=== PATIENT | male | born 1990 | race African-American/Black ===

== ENCOUNTER 2023-03-12 14:22 | Inpatient (IN) ==
[2023-03-12 14:52] LABS: INR 1.19 (0.88-1.18)
[2023-03-12 14:54] LABS: Hematocrit 36.3 % (38-53); Hemoglobin 11.7 g/dL (13.2-16.3); Mean Corpuscular Hemoglobin 22.7 pg (27-33); Mean Corpuscular Hgb Conc 32.1 g/dL (31-36); Mean Corpuscular Volume 70.8 fL (80-97); Mean Platelet Volume 6.9 fL (7.5-11.2); Platelet Count 426 10^3/uL (150-450); Red Blood Count 5.13 10^6/uL (4.06-5.63); Red Cell Distribution Width 19.6 % (12-17); White Blood Count 9.4 10^3/uL (3.6-10.2)
[2023-03-12] MEDS ORDERED: Iodixanol (CONTRAST) 320 MG/ML 100 ML SDV IV ONE (15:43)
[2023-03-12 15:52] LABS: Albumin 3.6 g/dL (3.2-5.2); Albumin/Globulin Ratio 1.1 (1-3); Calcium 8.9 mg/dL (8.6-10.3); Creatinine, Serum 1.57 mg/dL (0.67-1.17); Globulin 3.4 g/dL (2-4); Potassium 3.8 mmol/L (3.5-5.0); Total Bilirubin 0.7 mg/dL (0.2-1.0); eGFR CKD-EPI 59.3 (>60)
[2023-03-12 15:55] LABS: ABS Basophils 0.1 10^3/uL (0.0-0.1); ABS Eosinophils 0.3 10^3/uL (0.0-0.5); ABS Lymphocytes 2.1 10^3/uL (1.0-4.8); ABS Monocytes 0.7 10^3/uL (0.0-1.1); ABS Neutrophils 6.2 10^3/uL (1.5-7.6); ABS Nucleated RBC 0.01 10^3/ul; Eosinophil % 3.3 %; Lymphocyte % 22.6 %; Microcytosis 2+; Nucleated Red Blood Cells % 0.1 /100 WBC (0.0-0.4)
[2023-03-12 15:56] LABS: Anisocytosis 1+; Hypochromasia 2+
[2023-03-12 16:18] LABS: High Sensitivity Troponin 1 Hr 82 pg/mL (<20)
[2023-03-12 16:27] LABS: C Reactive Protein 17.74 mg/L (<8.01)
[2023-03-12] MEDS ORDERED: Cefepime 2 GM in Dextrose 2 GM/50 ML BAG IV ONE (16:37)
[2023-03-12] MEDS ORDERED: Lactated Ringers 1000 ml BAG 1,000 ML IV ONE (17:24)
[2023-03-12] MEDS ORDERED: NS 0.9% 1000 ml BAG 1,000 ML IV SCH (18:15)
[2023-03-12] MEDS ORDERED: Labetalol IV 5 MG/ML 20 ml VIAL IV PUSH PRN ×2 (18:55→20:07)
[2023-03-12] MEDS ORDERED: Enoxaparin 40 MG/0.4 ML SYR SUBCUT SCH (19:00)
[2023-03-12] MEDS: Azithromycin 500 mg/250 ml NS 500 MG/250 ML BAG IVPB SCH (19:30)
[2023-03-12 19:58] LABS: Urine Appearance Clear; Urine Bilirubin Negative (Negative); Urine Blood Negative (Negative); Urine Color Yellow; Urine Glucose Negative (Negative); Urine Ketones Negative (Negative); Urine Nitrite Negative (Negative); Urine Protein 2+(100 mg/dL) (Negative); Urine Urobilinogen Negative (Negative)
[2023-03-12 20:10] LABS: Urine Bacteria Absent (Absent); Urine Red Blood Cell Trace(0-2/hpf) (Absent); Urine Squamous Epithelial Cell Present (Absent); Urine White Blood Cell Trace(0-5/hpf) (Absent)
[2023-03-12 20:12] LABS: Urine Benzodiazepine Screen None Detected (None Detect); Urine Cannabinoids Screen None Detected (None Detect); Urine Opiates Screen None Detected (None Detect)
[2023-03-12 20:51] LABS: Urine Specific Gravity > 1.060 (1.002-1.030)
[2023-03-12] MEDS ORDERED: Furosemide 40 mg/4 ml IV VIAL IV SLOW PU ONE (21:58)
[2023-03-12 22:02] LABS: PCO2 Arterial 32 mmHg (35-45); PO2 Arterial 68 mmHg (80-100)
[2023-03-12 22:10] LABS: % Iron Saturation 4 % (15-55); .Transferrin 320 mg/dL (203-362); Iron < 20 ug/dL (50-212); Total Iron Binding Capacity 448 mcg/dL (250-450); Unsaturated Iron Binding 428 ug/dL
[2023-03-12 22:30] LABS: Ferritin 14.7 ng/mL (24-336)
[2023-03-13] MEDS: Metoprolol Tartrate 5 mg VIAL 5 ml VIAL (1 mg/ml) IV PRN ×2 (00:14→06:06)
[2023-03-13] MEDS ORDERED: Acetaminoph/Cod 120/12 mg LIQ 5 ML UDC PO ONE (00:31)
[2023-03-13 05:38] LABS: ABS Basophils 0.1 10^3/uL (0.0-0.1); ABS Lymphocytes 1.8 10^3/uL (1.0-4.8); ABS Monocytes 0.6 10^3/uL (0.0-1.1); ABS Nucleated RBC 0.01 10^3/ul; Eosinophil % 0.1 %; Hematocrit 39.1 % (38-53); Hemoglobin 12.3 g/dL (13.2-16.3); Lymphocyte % 12.2 %; Mean Corpuscular Hemoglobin 22.5 pg (27-33); Mean Corpuscular Hgb Conc 31.5 g/dL (31-36); Mean Corpuscular Volume 71.3 fL (80-97); Mean Platelet Volume 7.1 fL (7.5-11.2); Nucleated Red Blood Cells % 0.1 /100 WBC (0.0-0.4); Platelet Count 474 10^3/uL (150-450); Red Blood Count 5.48 10^6/uL (4.06-5.63); Red Cell Distribution Width 19.4 % (12-17); White Blood Count 14.5 10^3/uL (3.6-10.2)
[2023-03-13 05:52] LABS: Albumin 3.7 g/dL (3.2-5.2); Albumin/Globulin Ratio 1.1 (1-3); Calcium 8.8 mg/dL (8.6-10.3); Creatinine, Serum 1.61 mg/dL (0.67-1.17); Globulin 3.3 g/dL (2-4); Magnesium 1.8 mg/dL (1.9-2.7); Potassium 4.3 mmol/L (3.5-5.0); Total Bilirubin 0.7 mg/dL (0.2-1.0); eGFR CKD-EPI 57.6 (>60)
[2023-03-13] MEDS ORDERED: Labetalol IV 5 MG/ML 20 ml VIAL IV PUSH PRN (07:50)
[2023-03-13] MEDS: cefTRIAXone 1 gm/50 mL D5W 1 GM/50 ML BAG IV SCH (08:40)
[2023-03-13] MEDS ORDERED: Magnesium Sulfate 2 gm BAG 2 GM/50 ML BAG IVPB ONE (13:44)
[2023-03-13] MEDS ORDERED: Iron Dextran 25 MG in NS 0.9% 50 ML 50 ML IVPB ONE (13:50)
[2023-03-13] MEDS ORDERED: IRON DEXTRAN IVPB ONE (15:00)
[2023-03-13] MEDS ORDERED: NS 0.9% IVPB ONE (15:00)
[2023-03-13 16:51] LABS: HDL Cholesterol 47.4 mg/dL
[2023-03-13] MEDS ORDERED: Albuterol/Ipratropium NEB.SOL (2.5/0.5 MG) 3 ML NEB.SOLN INH PRN (18:11)
[2023-03-13] MEDS: Azithromycin 500 mg/250 ml NS 500 MG/250 ML BAG IVPB SCH (19:58)
[2023-03-13] MEDS: Enoxaparin 40 MG/0.4 ML SYR SUBCUT SCH (19:58)
[2023-03-14 04:38] LABS: Hematocrit 34.6 % (38-53); Mean Corpuscular Hemoglobin 22.7 pg (27-33); Mean Corpuscular Hgb Conc 31.8 g/dL (31-36); Mean Corpuscular Volume 71.4 fL (80-97); Mean Platelet Volume 7.1 fL (7.5-11.2); Platelet Count 429 10^3/uL (150-450); Red Blood Count 4.85 10^6/uL (4.06-5.63); Red Cell Distribution Width 19.3 % (12-17); White Blood Count 14.4 10^3/uL (3.6-10.2)
[2023-03-14 05:22] LABS: Calcium 8.4 mg/dL (8.6-10.3); Creatinine, Serum 1.42 mg/dL (0.67-1.17); Magnesium 2.4 mg/dL (1.9-2.7); eGFR CKD-EPI 66.9 (>60)
[2023-03-14] MEDS: cefTRIAXone 1 gm/50 mL D5W 1 GM/50 ML BAG IV SCH (08:05)
[2023-03-14] MEDS ORDERED: Empagliflozin 25 MG TAB PO SCH (14:00)
[2023-03-14] MEDS: Enoxaparin 40 MG/0.4 ML SYR SUBCUT SCH (21:08)
[2023-03-14] MEDS: Azithromycin 500 mg/250 ml NS 500 MG/250 ML BAG IVPB SCH (21:08)
[2023-03-15 06:06] LABS: Hematocrit 36.7 % (38-53); Hemoglobin 11.7 g/dL (13.2-16.3); Mean Corpuscular Hemoglobin 22.8 pg (27-33); Mean Corpuscular Hgb Conc 31.9 g/dL (31-36); Mean Corpuscular Volume 71.5 fL (80-97); Mean Platelet Volume 7.4 fL (7.5-11.2); Platelet Count 466 10^3/uL (150-450); Red Blood Count 5.13 10^6/uL (4.06-5.63); Red Cell Distribution Width 19.8 % (12-17); White Blood Count 14.4 10^3/uL (3.6-10.2)
[2023-03-15 06:31] LABS: Calcium 8.8 mg/dL (8.6-10.3); Creatinine, Serum 1.42 mg/dL (0.67-1.17); Magnesium 2.1 mg/dL (1.9-2.7); Potassium 4.4 mmol/L (3.5-5.0); eGFR CKD-EPI 66.9 (>60)
[2023-03-15] MEDS: cefTRIAXone 1 gm/50 mL D5W 1 GM/50 ML BAG IV SCH (07:47)
[2023-03-15] MEDS: Enoxaparin 40 MG/0.4 ML SYR SUBCUT SCH (20:36)
[2023-03-16 06:53] LABS: ABS Eosinophils 0.4 10^3/uL (0.0-0.5); ABS Lymphocytes 2.2 10^3/uL (1.0-4.8); ABS Monocytes 0.5 10^3/uL (0.0-1.1); ABS Neutrophils 7.3 10^3/uL (1.5-7.6); ABS Nucleated RBC 0.01 10^3/ul; Eosinophil % 4.1 %; Hematocrit 33.6 % (38-53); Lymphocyte % 20.8 %; Mean Corpuscular Hemoglobin 23.4 pg (27-33); Mean Corpuscular Hgb Conc 32.6 g/dL (31-36); Mean Corpuscular Volume 71.8 fL (80-97); Mean Platelet Volume 7.3 fL (7.5-11.2); Platelet Count 456 10^3/uL (150-450); Red Blood Count 4.68 10^6/uL (4.06-5.63); Red Cell Distribution Width 19.3 % (12-17); White Blood Count 10.4 10^3/uL (3.6-10.2)
[2023-03-16 07:02] LABS: Calcium 8.6 mg/dL (8.6-10.3); Creatinine, Serum 1.4 mg/dL (0.67-1.17); Potassium 4.1 mmol/L (3.5-5.0); eGFR CKD-EPI 68.1 (>60)
[2023-03-16] MEDS: cefTRIAXone 1 gm/50 mL D5W 1 GM/50 ML BAG IV SCH (09:13)
[2023-03-16] MEDS: Enoxaparin 40 MG/0.4 ML SYR SUBCUT SCH (20:58)
[2023-03-17 06:14] LABS: ABS Basophils 0.1 10^3/uL (0.0-0.1); ABS Eosinophils 0.6 10^3/uL (0.0-0.5); ABS Lymphocytes 2.2 10^3/uL (1.0-4.8); ABS Monocytes 0.6 10^3/uL (0.0-1.1); Eosinophil % 7.2 %; Hematocrit 34.4 % (38-53); Hemoglobin 10.9 g/dL (13.2-16.3); Lymphocyte % 26.1 %; Mean Corpuscular Hemoglobin 23.2 pg (27-33); Mean Corpuscular Hgb Conc 31.8 g/dL (31-36); Nucleated Red Blood Cells % 0.1 /100 WBC (0.0-0.4); Platelet Count 458 10^3/uL (150-450); Red Blood Count 4.71 10^6/uL (4.06-5.63); Red Cell Distribution Width 19.3 % (12-17); White Blood Count 8.5 10^3/uL (3.6-10.2)
[2023-03-17 06:25] LABS: Calcium 8.8 mg/dL (8.6-10.3); Creatinine, Serum 1.63 mg/dL (0.67-1.17); Potassium 4.3 mmol/L (3.5-5.0); eGFR CKD-EPI 56.7 (>60)
[2023-03-17] MEDS ORDERED: NS 0.9% 1000 ml BAG 1,000 ML IV ONE (07:00)
[2023-03-17] MEDS: cefTRIAXone 1 gm/50 mL D5W 1 GM/50 ML BAG IV SCH (09:00)
[2023-03-17] MEDS ORDERED: Iohexol 350 (CONTRAST) 200 ML MDV IV ONE (11:36)
[2023-03-17] MEDS ORDERED: Lidocaine 1% MPF 5 ML VIAL ONE (11:36)
[2023-03-17] MEDS ORDERED: Midazolam 5 mg/5 ml VIAL 1 mg/ml 5 ml VIAL (5 mg) IV SLOW PU ONE (11:36)
[2023-03-17] MEDS ORDERED: VERAPAMIL 2.5 MG/ML 2 ML VIAL ** 5 mg/2 ml IV SLOW PU ONE (11:36)
[2023-03-17] MEDS ORDERED: Midazolam 5 mg/5 ml VIAL 1 mg/ml 5 ml VIAL (5 mg) ONE (11:36)
[2023-03-17] MEDS ORDERED: VERAPAMIL 2.5 MG/ML 2 ML VIAL ** 5 mg/2 ml ONE (11:36)
[2023-03-17] MEDS ORDERED: Iohexol 350 (CONTRAST) 100 ML PAK IV ONE (11:36)
[2023-03-17] MEDS ORDERED: Heparin 1,000 UNIT/ML 10 ml (10,000 UNITS) CATHLAB/DIALYSIS ONE (11:36)
[2023-03-17] MEDS ORDERED: fentaNYL 100 mcg/2 ml 50 MCG/ML VIAL IV SLOW PU ONE ×2 (11:36→11:59)
[2023-03-17] MEDS ORDERED: nitroGLYCERIN DRIP 25,000 MCG/250 ML BTL IV ONE (11:36)
[2023-03-17] MEDS ORDERED: Heparin 2 UNITS/ML 1000 mls 2,000 ML IV ONE ×2 (11:36)
[2023-03-17] MEDS ORDERED: Heparin 1,000 UNIT/ML 10 ml (10,000 UNITS) CATHLAB/DIALYSIS IV ONE (11:36)
[2023-03-17] MEDS ORDERED: nitroGLYCERIN DRIP 25,000 MCG/250 ML BTL ONE (11:36)
[2023-03-17] MEDS ORDERED: fentaNYL 100 mcg/2 ml 50 MCG/ML VIAL ONE (11:36)
[2023-03-17] MEDS ORDERED: Lidocaine 1% MPF 5 ML VIAL INJ ONE (11:36)
[2023-03-17] MEDS ORDERED: Midazolam 10 mg/10 ml VIAL 1 mg/ml 10 ml VIAL (10 mg) IV SLOW PU ONE (11:59)
[2023-03-17] MEDS ORDERED: NS 0.9% 1000 ml BAG 1,000 ML IV SCH (12:45)
[2023-03-17] MEDS: Enoxaparin 40 MG/0.4 ML SYR SUBCUT SCH (21:28)
[2023-03-18 06:55] LABS: Calcium 8.9 mg/dL (8.6-10.3); Creatinine, Serum 1.58 mg/dL (0.67-1.17); Potassium 4.3 mmol/L (3.5-5.0); eGFR CKD-EPI 58.9 (>60)
[2023-03-18] MEDS ORDERED: Ferric Gluconate IV 125 MG in NS 0.9% 100 ml BAG 100 ML IVPB SCH (11:00)
[2023-03-18 11:20] LABS: Free T4 0.82 ng/dL (0.61-1.12)
[2023-03-18 11:22] LABS: TSH Ultra Thyroid Stim Horm 5.89 mcIU/mL (0.34-5.60)
[2023-03-18 11:41] LABS: Free T3 2.4 pg/mL (2.5-3.9)
[2023-03-18 13:10] LABS: Folate 7.55 ng/mL (5.90-24.80)
[2023-03-18 16:37] VITALS: BP 128/85
== END 2023-03-18 16:33 | disposition home or self-care (01) | DRG 192 ==
LOC: EDHOLD 14:22 → ED 14:22 → SUATTDRO 16:46 → MED 19:46 → SUATTDRO 22:53 → ICU 23:07 → SSU 03-14 07:46 → MEDTELE 03-15 15:13
PROVIDERS: ADMIT Internal Medicine; ATTEND Internal Medicine